=== PATIENT | female | born 1985 | race American Indian/Alaskan Native ===

== ENCOUNTER 2016-06-14 04:22 | Emergency (ER) | payer SELFPAY ==
[2016-06-14] MEDS ORDERED: TORADOL ONE (05:17)
[2016-06-14] MEDS ORDERED: TORADOL IM ONE (05:20)
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
[2016-06-14 06:40] VITALS: BP 143/96
== END 2016-06-14 06:40 | disposition home or self-care (01) ==
LOC: ED 04:22
DX: S46.812A Strain of other muscles, fascia and tendons at shoulder and upper arm level, left arm, initial encounter (principal); I10 Essential (primary) hypertension; Y04.8XXA Assault by other bodily force, initial encounter; Y93.89 Activity, other specified; Y99.8 Other external cause status; Y92.39 Other specified sports and athletic area as the place of occurrence of the external cause
CPT/HCPCS: 73030; 96372; 99283; J1885